=== PATIENT | male | born 1990 | race Caucasian/White ===

== ENCOUNTER 2019-01-19 13:21 | Day surgery (SDC) | payer OTHER ==
[2019-01-16 08:20] VITALS: BMI 16.5
[~2019-01-19 13:21] MED LIST: SODIUM CHLORIDE 0.9% 1,000 ML IV SCH
[2019-01-19 13:41] VITALS: BP 120/84; PULSE 71; RESP 6
[2019-01-19] MEDS ORDERED: IV FLUID CONTINUATION 450 ML IV ONE (14:15)
--- NOTE | 2019-03-16 11:44 | PCN ---
PROCEDURE NOTE TILT TABLE TEST: History of syncope. A 12-lead ECG shows sinus rhythm, sinus mechanism at 60 beats per minute. Tilt table test performed per protocol. Baseline blood pressure 94/65 mmHg, pulse rate in the 60s. The patient is tilted upright at an angle of 70 degrees per protocol, blood pressure remained between 90-110 mmHg systolic. It remained unchanged for the procedure. The patient's heart rate remained within normal range. at the end of the procedure. IMPRESSION: No evidence for neurocardiogenic syncope or dysautonomia. MMODL / IJN: [id number] /
== END 2019-01-19 15:28 | disposition home or self-care (01) ==
LOC: CATHEP 13:21
PROVIDERS: ATTEND Internal Medicine Clinical Cardiac Electrophysiology
DX: R55 Syncope and collapse (principal); F12.10 Cannabis abuse, uncomplicated; F17.210 Nicotine dependence, cigarettes, uncomplicated
CPT/HCPCS: 93660

== ENCOUNTER 2020-02-21 12:45 | Emergency (ER) | payer OTHER ==
[2020-02-21 12:50] VITALS: BP 111/78; PULSE 80; RESP 18; TEMP 98
--- NOTE | 2020-02-21 13:20 | ED ---
URI HPI - General Chief Complaint: Upper Respiratory Infection Stated Complaint: cough, SOB Time Seen by Provider: 02/21/20 12:57 Source: patient, RN notes reviewed Mode of arrival: ambulatory Limitations: no limitations - History of Present Illness Initial Comments: This is a 29-year-old male presents emergency Department with chief complaint of cough congestion bodyaches. Patient states symptoms started over night. Patient states that he was told that he has a history of asthma but states that he has not used his inhaler very frequently. He did. Last night with no improvement of symptoms. Patient denies any known fever denies any sick contacts no chest pain no chest tightness currently. - Related Data Home Medications Medication Instructions Recorded Confirmed No Known Home Medications 01/16/19 01/16/19 Allergies Allergy/AdvReac Type Severity Reaction Status Date / Time No Known Allergies Allergy Verified 02/21/20 12:49 Review of Systems ROS Statement: Those systems with pertinent positive or pertinent negative responses have been documented in the HPI. ROS Other: All systems not noted in ROS Statement are negative. Past Medical History Past Medical History: Asthma Additional Past Medical History / Comment(s): See Dr Hawk's H&P History of Any Multi-Drug Resistant Organisms: None Reported Additional Past Surgical History / Comment(s): ORIF rt arm,rt arm surgery Past Anesthesia/Blood Transfusion Reactions: Previous Problems w/ Anesthesia Additional Past Anesthesia/Blood Transfusion Reaction / Comment(s): panic attack coming out of anesthesia Past Psychological History: Anxiety, Depression Smoking Status: Former smoker Past Alcohol Use History: Rare Past Drug Use History: Marijuana - Past Family History Mother Family Medical History: No Reported History General Exam Limitations: no limitations General appearance: alert, in no apparent distress Head exam: Present: atraumatic, normocephalic, normal inspection Eye exam: Present: normal appearance, PERRL, EOMI. Absent: scleral icterus, conjunctival injection, periorbital swelling ENT exam: Present: normal exam, normal oropharynx, mucous membranes moist, TM's normal bilaterally Neck exam: Present: normal inspection. Absent: tenderness, meningismus, lymphadenopathy Respiratory exam: Present: normal lung sounds bilaterally. Absent: respiratory distress, wheezes, rales, rhonchi, stridor Cardiovascular Exam: Present: regular rate, normal rhythm, normal heart sounds. Absent: systolic murmur, diastolic murmur, rubs, gallop, clicks Course Vital Signs 02/21/20 12:46 Temperature 98.0 F Pulse Rate 80 Respiratory 18 Rate Blood Pressure 111/78 O2 Sat by Pulse 100 Oximetry Medical Decision Making - Medical Decision Making 21-year-old male presents emergency dept for cough congestion. Patient vitals are stable, Covid is negative, chest x-ray unremarkable. Patient has a viral URI symptoms. - Lab Data Lab Results 02/21/20 Range/Units 13:11 Coronavirus (PCR) Not Detected (Not Detectd) Disposition Clinical Impression: Acute upper respiratory infection Disposition: HOME SELF-CARE Condition: Stable Instructions (If sedation given, give patient instructions): Upper Respiratory Infection (ED) Additional Instructions: Please return to the Emergency Department if symptoms worsen or any other concerns. Is patient prescribed a controlled substance at d/c from ED?: No Referrals: None,Stated [Primary Care Provider] - 1-2 days Time of Disposition: 13:39
--- NOTE | 2020-02-21 13:24 | XR ---
EXAMINATION TYPE: XR chest 2V DATE OF EXAM: 02/21/2020 COMPARISON: NONE HISTORY: Chest pain TECHNIQUE: Frontal and lateral views of the chest are obtained. FINDINGS: There is no focal air space opacity. No evidence for pneumothorax. No pleural effusion. The cardiac silhouette size is within normal limits. The osseous structures are grossly intact. IMPRESSION: 1. No acute cardiopulmonary process.
== END 2020-02-21 13:50 | disposition home or self-care (01) ==
LOC: EC 12:45
DX: J06.9 Acute upper respiratory infection, unspecified (principal); Z20.828 Contact with and (suspected) exposure to other viral communicable diseases; Z87.891 Personal history of nicotine dependence
CPT/HCPCS: 71046; 87635; 99285